=== PATIENT | male | born 1995 | race American Indian/Alaskan Native ===

== ENCOUNTER 2021-10-19 18:57 | Emergency (ER) | payer MEDICAID ==
--- NOTE | 2021-10-19 19:41 | Emergency Department Report ---
HPI - General Chief Complaint: Psych Time Seen by Provider: 10/19/21 19:29 - HPI HPI: [facility] Patient is a 25-year-old male brought in by police after reportedly being disruptive at home and kicking in the door. The patient states he wanted his mother to purchase a 4 diego but the mother stated she did not have the money. Patient states she became upset. Patient admits he did kicking a door but states he only did and after another person kicked it and first. Patient denies suicidal or homicidal ideation. Patient denies auditory visual hallucinations. Patient currently denies complaints ED Past Medical Hx - Past Medical History Previous Medical History?: Yes Hx Hypertension: Yes Hx Psychiatric Treatment: Yes (Psychosis, Bipolar) - Surgical History Past Surgical History?: No - Family History Family history: no significant - Social History Smoking Status: Current Every Day Smoker (1/5 pack/day) Substance Use Type: Marijuana - Medications Home Medications: Home Medications Medication Instructions Recorded Confirmed Last Taken Type Divalproex Dr [DepaKOTE DR] 125 mg PO BID 30 Days #60 tablet 10/22/21 Unknown Rx OLANzapine [ZyPREXA] 10 mg PO QHS 30 Days #30 10/22/21 Unknown Rx ED Review of Systems ROS: Stated complaint: 1013 Other details as noted in HPI Constitutional: no symptoms reported Eyes: denies: eye pain ENT: denies: throat pain Respiratory: no symptoms reported Cardiovascular: denies: chest pain Endocrine: no symptoms reported Gastrointestinal: denies: abdominal pain Genitourinary: denies: dysuria Musculoskeletal: denies: back pain Neurological: denies: headache Psychiatric: denies: auditory hallucinations, visual hallucinations, homicidal thoughts, suicidal thoughts Physical Exam - Physical Exam Vital Signs: Vital Signs 10/19/21 19:22 Temperature 98.2 F Pulse Rate 86 Respiratory 16 Rate Blood Pressure 127/87 [Right] O2 Sat by Pulse 100 Oximetry Physical Exam: GENERAL: The patient is well-developed well-nourished male sitting in chair not appearing to be in acute distress HEENT: Normocephalic. Atraumatic. Extraocular motions are intact. Patient has moist mucous membranes. NECK: Supple. Trachea midline CHEST/LUNGS: Clear to auscultation. There is no respiratory distress noted. HEART/CARDIOVASCULAR: Regular. There is no tachycardia. There is no gallop rub or murmur. ABDOMEN: Abdomen is soft, nontender. Patient has normal bowel sounds. There is no abdominal distention. SKIN: There is no rash. There is no edema. There is no diaphoresis. NEURO: The patient is awake, alert, and oriented. The patient is cooperative. The patient has no focal neurologic deficits. The patient has normal speech and gait. GCS 15 MUSCULOSKELETAL: There is no evidence of acute injury. ED Course Vital Signs 10/19/21 19:22 Temperature 98.2 F Pulse Rate 86 Respiratory 16 Rate Blood Pressure 127/87 [Right] O2 Sat by Pulse 100 Oximetry ED Medical Decision Making - Lab Data Result diagrams: 10/19/21 19:39 10/19/21 19:39 Laboratory Tests 10/19/21 10/19/21 10/19/21 19:37 19:37 19:39 WBC 11.0 RBC 4.57 Hgb 14.3 Hct 41.7 MCV 91 MCH 31 MCHC 34 RDW 13.8 Plt Count 379 Lymph % (Auto) 21.5 [place] % (Auto) 8.9 H Eos % (Auto) 2.2 Baso % (Auto) 1.3 Lymph # (Auto) 2.4 [place] # (Auto) 1.0 H Eos # (Auto) 0.2 Baso # (Auto) 0.1 Seg Neutrophils % 66.1 Seg Neutrophils # 7.3 Sodium Potassium Chloride Carbon Dioxide Anion Gap BUN Creatinine Estimated GFR BUN/Creatinine Ratio Glucose Calcium Urine Color Yellow Urine Turbidity Clear Urine pH 7.0 Ur Specific Mayer 1.017 Urine Protein <15 mg/dl Urine Glucose (UA) Neg Urine Ketones Tr Urine Blood Neg Urine Nitrite Neg Urine Bilirubin Neg Urine Urobilinogen < 2.0 Ur Leukocyte Esterase Neg Urine WBC (Auto) < 1.0 Urine RBC (Auto) 3.0 U Epithel Cells (Auto) < 1.0 Urine Bacteria (Auto) 1+ Urine Mucus Few Urine Opiates Screen Presumptive negative Urine Methadone Screen Presumptive negative Acetaminophen Ur Barbiturates Screen Presumptive negative Ur Phencyclidine Scrn Presumptive negative Ur Amphetamines Screen Presumptive negative U Benzodiazepines Scrn Presumptive negative Urine Cocaine Screen Presumptive negative U Marijuana (THC) Screen Presumptive positive Drugs of Abuse Note Disclamer Plasma/Serum Alcohol 10/19/21 10/19/21 10/19/21 19:39 19:39 19:39 WBC RBC Hgb Hct MCV MCH MCHC RDW Plt Count Lymph % (Auto) [place] % (Auto) Eos % (Auto) Baso % (Auto) Lymph # (Auto) [place] # (Auto) Eos # (Auto) Baso # (Auto) Seg Neutrophils % Seg Neutrophils # Sodium 137 Potassium 4.0 Chloride 101.2 Carbon Dioxide 25 Anion Gap 15 BUN 11 Creatinine 0.9 Estimated GFR > 60 BUN/Creatinine Ratio 12 Glucose 91 Calcium 9.6 Urine Color Urine Turbidity Urine pH Ur Specific Mayer Urine Protein Urine Glucose (UA) Urine Ketones Urine Blood Urine Nitrite Urine Bilirubin Urine Urobilinogen Ur Leukocyte Esterase Urine WBC (Auto) Urine RBC (Auto) U Epithel Cells (Auto) Urine Bacteria (Auto) Urine Mucus Urine Opiates Screen Urine Methadone Screen Acetaminophen 5.0 L Ur Barbiturates Screen Ur Phencyclidine Scrn Ur Amphetamines Screen U Benzodiazepines Scrn Urine Cocaine Screen U Marijuana (THC) Screen Drugs of Abuse Note Plasma/Serum Alcohol < 0.01 - Differential Diagnosis Adjustment disorder, bipolar disorder Critical care attestation.: If time is entered above; I have spent that time in minutes in the direct care of this critically ill patient, excluding procedure time. ED Disposition Clinical Impression: Psychiatric diagnosis Disposition: 01 HOME / SELF CARE / HOMELESS Is pt being admited?: No Does the pt Need Aspirin: No Condition: Stable Prescriptions: Divalproex Dr [DepaKOTE DR] 125 mg PO BID 30 Days #60 tablet OLANzapine [ZyPREXA] 10 mg PO QHS 30 Days #30 Referrals: BRIAN FLOYD MD [Primary Care Provider] - 3-5 Days
[2021-10-19 19:49] LABS: Bacteria,Urine 1+ /HPF (Negative); Bilirubin,Urine NEG (Negative); Blood,Urine NEG (Negative); Color,Urine Yellow (Yellow); Mucus,Urine FEW /HPF; Protein,Urine <15 mg/dL mg/dL (Negative); Urobilinogen,Urine < 2.0 mg/dL (<2.0); WBC,Urine < 1.0 /HPF (0.0-6.0)
[2021-10-19 20:04] LABS: Amphetamine Screen,Urine PRESUMPTIVE NEGATIVE; Benzodiazepines Screen,Urine PRESUMPTIVE NEGATIVE; Cannabinoid Screen,Urine PRESUMPTIVE POSITIVE; Cocaine Screen,Urine PRESUMPTIVE NEGATIVE; Methadone Screen,Urine PRESUMPTIVE NEGATIVE; Opiate Screen,Urine PRESUMPTIVE NEGATIVE
[2021-10-19 20:28] LABS: Basophils # (Auto) 0.1 K/mm3 (0.0-0.1); Basophils % (Auto) 1.3 % (0.0-1.8); Eosinophils # (Auto) 0.2 K/mm3 (0.0-0.4); Eosinophils % (Auto) 2.2 % (0.0-4.3); Hematocrit 41.7 % (35.5-45.6); Hemoglobin 14.3 gm/dl (11.8-15.2); Lymphocytes # (Auto) 2.4 K/mm3 (1.2-5.4); Lymphocytes % (Auto) 21.5 % (13.4-35.0); Mean Corpuscular HGB Conc 34 % (32-34); Mean Corpuscular Volume 91 fl (84-94); Monocytes % (Auto) 8.9 % (0.0-7.3); Platelet Count 379 K/mm3 (140-440); Red Blood Count 4.57 M/mm3 (3.65-5.03); Red Cell Distribution Width 13.8 % (13.2-15.2)
[2021-10-19 20:53] LABS: BUN/Creatinine Ratio 12; Blood Urea Nitrogen 11 mg/dL (9-20); Calcium 9.6 mg/dL (8.4-10.2); Hemolysis Index 15
[2021-10-19] MEDS ORDERED: HALOPERIDOL LACTATE 5 MG/1 ML INJ IM PRN (21:34)
[2021-10-19] MEDS ORDERED: diphenhydrAMINE 50 MG/ML VIAL IM PRN (21:34)
[2021-10-19] MEDS ORDERED: LORazepam 2 MG/ML VIAL IM PRN (21:34)
--- NOTE | 2021-10-20 11:13 | Consultation ---
History of Present Illness - Reason for Consult Consult date: 10/20/21 Reason for consult: mental health evaluation - History of Present Psychiatric Illness ED Note: Patient is a 25-year-old male brought in by police after reportedly being disruptive at home and kicking in the door. The patient states he wanted his mother to purchase a 4 diego but the mother stated she did not have the money. Patient states she became upset. Patient admits he did kicking a door but states he only did and after another person kicked it and first. Patient denies suicidal or homicidal ideation. Patient denies auditory visual hallucinations. Patient currently denies complaints. The patient was seen this morning in seclusion. The patient has smeared feaces on the window. He is refusing to answer questions. REVIEW OF SYSTEMS MENTAL STATUS EXAMINATION Diagnoses: (1)Unspecified mood disorder Treatment Plan 1013 Continue home meds Zyprexa 5mg po daily PSYCHOTHERAPY: Supportive psychotherapy provided MEDICAL: Per primary team DELIRIUM PRECAUTIONS: Please re-orient patient frequently, keep lights on during the day, and minimize benzodiazepines and opiates as these medications could worsen patient's confusion. 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 Will follow. Thank you for the consult. Case staffed with Dr. Booth Medications and Allergies Medications and Allergies Allergies Allergy/AdvReac Type Severity Reaction Status Date / Time paliperidone [From Invega] Allergy Hives Verified 10/19/21 19:20 Active Meds: Active Medications Diphenhydramine HCl (Diphenhydramine 50 Mg/Ml Vial) 50 mg IM Q6H PRN PRN Reason: Agitation Last Admin: 10/19/21 21:43 Dose: 50 mg Haloperidol Lactate (Haloperidol Lactate 5 Mg/1 Ml Inj) 10 mg IM Q8H PRN PRN Reason: Agitation Lorazepam (Lorazepam 2 Mg/Ml Vial) 2 mg IM Q8H PRN PRN Reason: Agitation Last Admin: 10/19/21 21:43 Dose: 2 mg Mental Status Exam - Vital signs Last Vital Signs Temp 98.2 F 10/19/21 19:22 Pulse 86 10/19/21 19:22 Resp 16 10/19/21 19:22 BP 127/87 10/19/21 19:22 Pulse Ox 100 10/19/21 19:22 Results Result Diagrams: 10/19/21 19:39 10/19/21 19:39 Abnormal lab results 10/19/21 10/19/21 10/19/21 Range/Units 19:39 19:39 19:39 Sullivan % (Auto) 8.9 H (0.0-7.3) % Sullivan # (Auto) 1.0 H (0.0-0.8) K/mm3 Salicylates < 0.3 L (2.8-20.0) mg/dL Acetaminophen 5.0 L (10.0-30.0) ug/mL All other labs normal.
--- NOTE | 2021-10-20 12:04 | Event Note ---
Date: 10/20/21 PATIENT WAS JUST GIVEN HALDO PRIOR TO MY EVALUATION, THEREFORE, PATIENT MEDICALLY SEDATED. REMAINS HEMODYNAMICALLY STABLE AND AFEBRILE. MENTAL HEALTH RECOMMEND INPATIENT AND WE ARE PENDING COVID TEST. - ESQUIVEL
--- NOTE | 2021-10-21 10:04 | Progress Note ---
Subjective - Reason for Consult Consult date: 10/21/21 Reason for consult: Mental health evaluation - Chief Complaint Chief complaint: The patient was seen this morning. He continues to be agitated and intrusive. REVIEW OF SYSTEMS MENTAL STATUS EXAMINATION Diagnoses: (1)Bipolar disorder Treatment Plan 1013 Continue home meds Zyprexa 10mg po daily Depakote 125mg po BID PSYCHOTHERAPY: Supportive psychotherapy provided MEDICAL: Per primary team DELIRIUM PRECAUTIONS: Please re-orient patient frequently, keep lights on during the day, and minimize benzodiazepines and opiates as these medications could worsen patient's confusion. 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 Will follow. Thank you for the consult. Case staffed with Dr. Booth Medications and Allergies Medications and Allergies Mental Status Exam - Vital signs Last Vital Signs Temp 98.3 F 10/20/21 20:09 Pulse 80 10/20/21 20:09 Resp 18 10/20/21 20:09 BP 137/94 10/20/21 20:09 Pulse Ox 100 10/20/21 20:09
[2021-10-21] MEDS ORDERED: DIVALPROEX DR 125 MG TAB PO SCH (11:00)
--- NOTE | 2021-10-21 12:04 | Event Note ---
Date: 10/21/21 Diagnoses: (1)Bipolar disorder Treatment Plan 1013 Continue home meds Zyprexa 10mg po daily Depakote 125mg po BID PSYCHOTHERAPY: Supportive psychotherapy provided MEDICAL: Per primary team DELIRIUM PRECAUTIONS: Please re-orient patient frequently, keep lights on during the day, and minimize benzodiazepines and opiates as these medications could worsen patient's confusion. 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 Will follow. Thank you for the consult. Case staffed with Dr. Booth I have seen the patient myself and patient remains hemodynamically stable and afebrile; appreciate psychiatry's recommendation. Naren Santana
[2021-10-22 09:59] VITALS: BP 127/75
--- NOTE | 2021-10-22 11:11 | Progress Note ---
Subjective - Reason for Consult Consult date: 10/22/21 Reason for consult: psychosis - Chief Complaint Chief complaint: The patient was seen this morning. He is calm, alert and oriented x3. The patient reports doing well. He denies any current suicidal/homicidal ideation and denies hallucinations. REVIEW OF SYSTEMS MENTAL STATUS EXAMINATION Diagnoses: (1)Bipolar disorder Treatment Plan DC 1013 Continue home meds Zyprexa 10mg po daily Depakote 125mg po BID PSYCHOTHERAPY: Supportive psychotherapy provided MEDICAL: Per primary team DELIRIUM PRECAUTIONS: Please re-orient patient frequently, keep lights on during the day, and minimize benzodiazepines and opiates as these medications could worsen patient's confusion. 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 Wire Stripping Machine Operator will provide patient with psychiatric outpatient resources. Will sign off. Thank you for the consult. Case staffed with Dr. Booth Medications and Allergies Medications and Allergies Mental Status Exam - Vital signs Last Vital Signs Temp 97.4 F L 10/22/21 09:57 Pulse 65 10/22/21 09:57 Resp 18 10/22/21 09:57 BP 127/75 10/22/21 09:57 Pulse Ox 99 10/22/21 09:57
== END 2021-10-22 13:03 | disposition home or self-care (01) ==
LOC: ED 18:57
DX: F99 Mental disorder, not otherwise specified (principal); Z20.822 Contact with and (suspected) exposure to COVID-19; F17.200 Nicotine dependence, unspecified, uncomplicated; I10 Essential (primary) hypertension; F12.90 Cannabis use, unspecified, uncomplicated; Z79.899 Other long term (current) drug therapy
CPT/HCPCS: 36415; 80048; 80307; 81001; 85025; 96372; 99284; J1200; J1630; J2060; U0003; 80320; 99283; G0480

== ENCOUNTER 2021-10-30 19:28 | Emergency (ER) | payer MEDICAID ==
--- NOTE | 2021-10-30 22:00 | Emergency Department Report ---
ED Psych HPI - General Chief Complaint: Psych Stated Complaint: MH EVAL Time Seen by Provider: 10/30/21 19:47 Source: patient, EMS Mode of arrival: Ambulatory - History of Present Illness Initial Comments: HI. Patient is having a psychiatric camilla NICOLE Complaint: other -: days(s) Associated Psychiatric Symptoms: homicidal ideation, racing thoughts, delusions Quality: constant Improves With: none Worsens With: none - Related Data Previous Rx's Medication Instructions Recorded Last Taken Type Divalproex Dr [DepaKOTE DR] 125 mg PO BID 30 Days #60 tablet 10/22/21 Unknown Rx OLANzapine [ZyPREXA] 10 mg PO QHS 30 Days #30 10/22/21 Unknown Rx Allergies Allergy/AdvReac Type Severity Reaction Status Date / Time paliperidone [From Invega] Allergy Hives Verified 10/19/21 19:20 ED Review of Systems ROS: Stated complaint: MH EVAL Other details as noted in HPI Comment: Unobtainable due to pts medical conditions ED Past Medical Hx - Past Medical History Hx Hypertension: Yes Hx CVA: No Hx Psychiatric Treatment: Yes (Psychosis, Bipolar) - Social History Smoking Status: Current Every Day Smoker (1/5 pack/day) Substance Use Type: Marijuana - Medications Home Medications: Home Medications Medication Instructions Recorded Confirmed Last Taken Type Divalproex Dr [DepaKOTE DR] 125 mg PO BID 30 Days #60 tablet 10/22/21 Unknown Rx OLANzapine [ZyPREXA] 10 mg PO QHS 30 Days #30 10/22/21 Unknown Rx ED Physical Exam - General Limitations: No Limitations General appearance: alert, anxious - Head Head exam: Present: atraumatic, normocephalic - Eye Eye exam: Present: normal appearance - ENT ENT exam: Present: mucous membranes moist - Neck Neck exam: Present: normal inspection - Respiratory Respiratory exam: Present: normal lung sounds bilaterally. Absent: respiratory distress - Cardiovascular Cardiovascular Exam: Present: regular rate, normal rhythm. Absent: systolic murmur, diastolic murmur, rubs, gallop - GI/Abdominal GI/Abdominal exam: Present: soft, normal bowel sounds - Rectal Rectal exam: Present: deferred - Extremities Exam Extremities exam: Present: normal inspection - Back Exam Back exam: Present: normal inspection - Neurological Exam Neurological exam: Present: alert, oriented X3 - Psychiatric Psychiatric exam: Present: anxious, homicidal ideation - Skin Skin exam: Present: warm, dry, intact, normal color. Absent: rash ED Course Vital Signs 10/30/21 10/31/21 10/31/21 19:39 09:44 14:19 Temperature 98.3 F 98.2 F Pulse Rate 100 H 91 H 85 Respiratory 16 18 16 Rate Blood Pressure 126/82 113/88 128/78 [Right] O2 Sat by Pulse 99 99 99 Oximetry ED Medical Decision Making - Lab Data Result diagrams: 10/30/21 23:09 10/30/21 23:09 Critical care attestation.: If time is entered above; I have spent that time in minutes in the direct care of this critically ill patient, excluding procedure time. ED Disposition Clinical Impression: Encounter for behavioral health screening, Psychiatric diagnosis Disposition: HOME / SELF CARE / HOMELESS Is pt being admited?: No Does the pt Need Aspirin: No Condition: Good Additional Instructions: Please follow-up with an outpatient mental health specialist within the next week. Avoid consumption of alcohol, tobacco, smoke products and recreational drugs. Please return to the emergency room right away with new pain, worsened pain, m igration of pain, projectile vomiting, change in mental status, confusion, inability tolerate liquid feeds, new, worsened or different symptoms not present on the initial emergency room evaluation professional and Agency Contacts To help Resolve Crises (30/12) [place] Crisis Line: Suicide Prevention Line: Crisis Text Line: Text ``START to 761936 Emergency: 911 Outpatient COMMUNITY Behavioral Health Resources: MAURICIO: [facility] B [address] [place] [address] [facility] [address] [place] [address] Friday thru Friday - 8am - 5pm Call to schedule an assessment for mental health and substance abuse programs [facility] Address: [address] [place] [address] Friday thru Friday- 7am-2pm [facility] Address: [address] [place] [address] Friday thrfriday: 8:30AM-5PM Professional and Agency Contacts To help Resolve Crises(30/12) [place] Crisis Line: Suicide Prevention Line: Crisis Text Line: Text START to 853586 Emergency: 911 Outpatient COMMUNITY Behavioral Health Resources: DEKALB: [facility] [address] [place], [place] [address] CÉSAR: [facility] [address] [place] [address] [place]: [facility] [address] [place] [address] Friday thru Friday - 8am - 5pm [facility] Address: [address], [place] [address] DELGAD[place]: [facility] Address: [address] [place] [address] Friday thru Friday- 7am-2pm [facility] Address: [address] [place] [address] Friday thru Friday: 8:30AM-5PM OUTPATIENT MENTAL HEALTH RESOURCES [facility], [address] [place] [address] [facility] Yulissa Castro MD: [address] [facility] [address] Brian [address] [place], [place] [id number] [facility]: [address] [place], [place] [id number] [facility] [address] [place], [place] [address] [phone] [facility]: [address] [facility] [address] [place] [address] [phone] [facility]: [address] [facility] Brian. B [facility] [id number] [facility]: [address] [place] [address] Bhupendra King MD: [address] [facility] [address] [facility]: [facility] [address] [place], [place] [id number] [phone] [place] CRISIS AND ACCESS LINE: * In case of an emergency, please contact the following numbers: [place] Crisis and Access Line: Number: Crisis Text Line: (Text START) Number: 214733 Suicide Prevention Line: Number: Emergency Number: 911 SUBSTANCE ABUSE PROGRAMS: [facility]: Location: [place], [place] [facility] Address: [address] [place] [address] [facility]: Address: [address] [place] [address] [facility]: Address: [address] [place] [address] [facility]: Address: [address] [place] [address] [facility] Address: [address] [place] [address]. Please contact above numbers to attempt placement into free based program. Medicaid Programs: [facility]: Address: [address] [place] [address] [facility]: Address: [address] [place] [address] HOMELESS RESOURCES: [facility] NEED HELP? If you are in need of help or know someone who does, please contact us at [email or web address] or call , or come to our offices at [address] [place] [address], Friday-Friday beginning at 8AM. [facility] Males only Admission at 7am Mon to Fri Address: [address] [place] [address] Client Engagement Center [phone] Regular program admission occurs Friday through Friday at 7:00 am and operates on a first come, first serve basis. Because we cant anticipate program availability in advance and program spots are in high demand, we recommend arriving early. Space fills up fast! Next steps can include: Assignment to a [facility] program bed Connection to and placement in a partner program, or Referral to a partner agency [facility] [place] only Admission at 4:30pm daily Address: [place] [address] [facility] Services Admission from 8am to 10am Daily No intake until 06/05/20 Address: [place] [address] [facility] [employer] [facility] [employer] goal is to take chronically homeless men and help them overcome their barriers, change them as human beings, making them productive and self-sufficient individuals. Each [employer] participant is housed at our facility for up to a year while they participate in transitional work (earning $7.40/hr for 30+ hours per week). All participants renounce dependency and remain drug and alcohol free. Personal support, case management, and workforce training is offered throughout the program. We also provide AA/NA Classes, GED classes, support in obtaining a flatbed company driver's licenses, help setting up a bank account, and life skill preparation courses. IF A MAN IS COMMITTED TO BEING CLEAN, TO ADDRESSING THE PAST, AND TO WORKING, WE WILL HELP HIM GET A VICE PRESIDENT INDUSTRIAL RELATIONS JOB, TRANSPORTATION AND PERMANENT HOUSING WITHIN A YEAR. [employer] [address] [place] [address] [email or web address] Referrals: [facility] [Outside] - 3-5 Days [facility] [Outside] - 3-5 Days Forms: Work/School Release Form(ED)
[2021-10-30 23:41] LABS: Basophils # (Auto) 0.1 K/mm3 (0.0-0.1); Basophils % (Auto) 0.7 % (0.0-1.8); Eosinophils # (Auto) 0.2 K/mm3 (0.0-0.4); Eosinophils % (Auto) 1.9 % (0.0-4.3); Hematocrit 43.1 % (35.5-45.6); Hemoglobin 14.1 gm/dl (11.8-15.2); Lymphocytes # (Auto) 3.1 K/mm3 (1.2-5.4); Lymphocytes % (Auto) 26.4 % (13.4-35.0); Mean Corpuscular HGB Conc 33 % (32-34); Mean Corpuscular Volume 93 fl (84-94); Monocytes # (Auto) 0.8 K/mm3 (0.0-0.8); Monocytes % (Auto) 7.1 % (0.0-7.3); Platelet Count 417 K/mm3 (140-440); Red Blood Count 4.64 M/mm3 (3.65-5.03); Red Cell Distribution Width 14.2 % (13.2-15.2)
[2021-10-30] MEDS ORDERED: traZODone 50 MG TAB PO ONE (23:46)
[2021-10-30 23:50] LABS: BUN/Creatinine Ratio 11; Blood Urea Nitrogen 10 mg/dL (9-20); Calcium 9.9 mg/dL (8.4-10.2); Hemolysis Index 8
--- NOTE | 2021-10-31 12:50 | Event Note ---
Date: 10/31/21 The patient was evaluated in the emergency department for symptoms described in the history of present illness. He/she was evaluated in the context of the global COVID-19 pandemic, which necessitated consideration that the patient might be at risk for infection with the virus that causes COVID-19. Institutional protocols and algorithms that pertain to the evaluation of patients at risk for COVID-19 are in a state of rapid change based on information released by regulatory bodies including the CDC and federal and state organizations. These policies and algorithms were followed during the patient's care in the emergency department. Please note that these policies, procedures and recommendations changed on a rapid basis. Laboratory studies, vital signs, nursing documentation, ER documentation, and psychiatric documentation are reviewed and appreciated. Nursing team reports no acute events this morning or concerns. The patient is awake and and does not appear to be in any acute distress. The patient was deemed medically suitable for psychiatric disposition and placement during his initial ER evaluation. The patient continues to remain medically suitable for psychiatric placement and disposition. He is currently pending psychiatric placement. Vital Signs 10/30/21 10/31/21 19:39 09:44 Temperature 98.3 F 98.2 F Pulse Rate 100 H 91 H Respiratory 16 18 Rate Blood Pressure 126/82 113/88 [Right] O2 Sat by Pulse 99 99 Oximetry Lab Results 10/30/21 10/30/21 10/30/21 Range/Units 23:09 23:09 23:09 WBC 11.8 H (4.5-11.0) K/mm3 RBC 4.64 (3.65-5.03) M/mm3 Hgb 14.1 (11.8-15.2) gm/dl Hct 43.1 (35.5-45.6) % MCV 93 (84-94) fl MCH 31 (28-32) pg MCHC 33 (32-34) % RDW 14.2 (13.2-15.2) % Plt Count 417 (140-440) K/mm3 Lymph % (Auto) 26.4 (13.4-35.0) % [place]mer % (Auto) 7.1 (0.0-7.3) % Eos % (Auto) 1.9 (0.0-4.3) % Baso % (Auto) 0.7 (0.0-1.8) % Lymph # (Auto) 3.1 (1.2-5.4) K/mm3 [place] # (Auto) 0.8 (0.0-0.8) K/mm3 Eos # (Auto) 0.2 (0.0-0.4) K/mm3 Baso # (Auto) 0.1 (0.0-0.1) K/mm3 Seg Neutrophils % 63.9 (40.0-70.0) % Seg Neutrophils # 7.6 (1.8-7.7) K/mm3 Sodium 138 (137-145) mmol/L Potassium 4.9 (3.6-5.0) mmol/L Chloride 101.6 (98-107) mmol/L Carbon Dioxide 26 (22-30) mmol/L Anion Gap 15 mmol/L BUN 10 (9-20) mg/dL Creatinine 0.9 (0.8-1.3) mg/dL Estimated GFR > 60 ml/min BUN/Creatinine Ratio 11 % Glucose 77 (75-100) mg/dL Calcium 9.9 (8.4-10.2) mg/dL Salicylates < 0.3 L (2.8-20.0) mg/dL Acetaminophen (10.0-30.0) ug/mL SARS-CoV-2 (PCR) (Negative) 10/30/21 10/31/21 Range/Units 23:09 11:02 WBC (4.5-11.0) K/mm3 RBC (3.65-5.03) M/mm3 Hgb (11.8-15.2) gm/dl Hct (35.5-45.6) % MCV (84-94) fl MCH (28-32) pg MCHC (32-34) % RDW (13.2-15.2) % Plt Count (140-440) K/mm3 Lymph % (Auto) (13.4-35.0) % Gilmer % (Auto) (0.0-7.3) % Eos % (Auto) (0.0-4.3) % Baso % (Auto) (0.0-1.8) % Lymph # (Auto) (1.2-5.4) K/mm3 [place]mer # (Auto) (0.0-0.8) K/mm3 Eos # (Auto) (0.0-0.4) K/mm3 Baso # (Auto) (0.0-0.1) K/mm3 Seg Neutrophils % (40.0-70.0) % Seg Neutrophils # (1.8-7.7) K/mm3 Sodium (137-145) mmol/L Potassium (3.6-5.0) mmol/L Chloride (98-107) mmol/L Carbon Dioxide (22-30) mmol/L Anion Gap mmol/L BUN (9-20) mg/dL Creatinine (0.8-1.3) mg/dL Estimated GFR ml/min BUN/Creatinine Ratio % Glucose (75-100) mg/dL Calcium (8.4-10.2) mg/dL Salicylates (2.8-20.0) mg/dL Acetaminophen 5.0 L (10.0-30.0) ug/mL SARS-CoV-2 (PCR) Negative (Negative)
--- NOTE | 2021-10-31 13:09 | Consultation ---
History of Present Illness - Reason for Consult Consult date: 10/31/21 Reason for consult: psychosis - History of Present Psychiatric Illness The patient was seen today. He is calm, cooperative and pleasant. The patient says "it's a long story" when asking why did he come to the hospital. He then says he had an argument with his mom. He says she put him out. He says his mom is money hungry. The patient says "the problem is, I can't find a job but I've been looking for one." The patient says he was angry and said things out of anger. He denies SI/HI or hallucinations. He says he has a history of Bipolar and psychosis. The patient says he's been taking his meds. He is asking if he can go home. He says "well I don't have a home now cause she put me out yesterday." PSYCH HISTORY Diagnoses: Schizophrenia Suicide attempts or Self-harm behavior: No Prior psychiatric hospitalizations: Yes Substance Abuse history: Denies Previous psychiatric medications tried: Zyprexa and propranolol, depakote Outpatient treatment: Yes PAST MEDICAL HISTORY: Family Psychiatric History: None reported or documented SOCIAL HISTORY Marital Status: Single Living Arrangements: half-way Employment Status: Unemployed Access to guns/weapons: Denies Education: high school History of Abuse: Denies Legal History: none MENTAL STATUS EXAMINATION General Appearance and Behavior: Age appropriate, good hygiene, wearing appropriate clothes, calm, cooperative, polite Cooperation: Participating Psychomotor Behavior: unremarkable and within normal limits Mood: better Affect and affective range: congruent with mood Thought Process: gaol directed Thought Content: None Speech: Normal volume, Regular rate and rhythm, Suicidal Ideation: Denies Homicidal Ideation: Denies Hallucinations: Denies Delusions: None elicited Impulse Control: Limited Insight and Judgment: Limited insight and poor judgment, Memory: Normal Attention: attentive Orientation: Alert, oriented Assessment and Plan (1) Schizophrenia Treatment Plan d/c 1013 Continue meds recently prescribed PSYCHOTHERAPY: Supportive psychotherapy provided MEDICAL: Per primary team DELIRIUM PRECAUTIONS: Please re-orient patient frequently, keep lights on during the day, and minimize benzodiazepines and opiates as these medications could worsen patient's confusion. 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 Follow up with outpatient in 7 to 14 days upon discharge The service center appraiser to further discuss safety plan, and give all necessary resources. Will sign off. Thank you for the consult. Case staffed with Dr. Booth Medications and Allergies Allergies Allergy/AdvReac Type Severity Reaction Status Date / Time paliperidone [From Invega] Allergy Hives Verified 10/19/21 19:20 Home Medications Medication Instructions Recorded Confirmed Last Taken Type Divalproex Dr [DepaKOTE DR] 125 mg PO BID 30 Days #60 tablet 10/22/21 Unknown Rx OLANzapine [ZyPREXA] 10 mg PO QHS 30 Days #30 10/22/21 Unknown Rx Mental Status Exam - Vital signs Last Vital Signs Temp 98.2 F 10/31/21 09:44 Pulse 91 H 10/31/21 09:44 Resp 18 10/31/21 09:44 BP 113/88 10/31/21 09:44 Pulse Ox 99 10/31/21 09:44 Results Result Diagrams: 10/30/21 23:09 10/30/21 23:09 Abnormal lab results 10/30/21 10/30/21 10/30/21 Range/Units 23:09 23:09 23:09 WBC 11.8 H (4.5-11.0) K/mm3 Salicylates < 0.3 L (2.8-20.0) mg/dL Acetaminophen 5.0 L (10.0-30.0) ug/mL All other labs normal.
[2021-10-31 14:21] VITALS: BP 128/78
== END 2021-10-31 14:21 | disposition home or self-care (01) ==
LOC: EEVIPCON 19:28 → ED 19:28
DX: Z13.30 Encounter for screening examination for mental health and behavioral disorders, unspecified (principal); F29 Unspecified psychosis not due to a substance or known physiological condition; Z20.822 Contact with and (suspected) exposure to COVID-19; F31.9 Bipolar disorder, unspecified; F17.290 Nicotine dependence, other tobacco product, uncomplicated
CPT/HCPCS: 36415; 80048; 85025; 99284; U0003; 80320; G0480